=== PATIENT | female | born 1955 | race Caucasian/White ===

== ENCOUNTER → 2016-11-11 | Outpatient (CLI) | payer OTHER ==
[~2016-11-11] MED LIST: OMNIPAQUE 350 MG/ML, 100ML BOTTLE ONE
== END | disposition home or self-care (01) ==
LOC: CFH 08:44
PROVIDERS: ATTEND Surgery
DX: C50.912 Malignant neoplasm of unspecified site of left female breast (principal); M47.897 Other spondylosis, lumbosacral region; K76.89 Other specified diseases of liver
CPT/HCPCS: 71260; 74177; Q9967

== ENCOUNTER → 2016-11-11 | Outpatient (CLI) | payer OTHER | END | disposition home or self-care (01) | LOC: PETCFH 08:46 | PROVIDERS: ATTEND Surgery | DX: C50.912 Malignant neoplasm of unspecified site of left female breast (principal) | CPT/HCPCS: 78306; A9503 ==

== ENCOUNTER 2016-11-15 06:06 | Day surgery (SDC) | payer OTHER ==
[~2016-11-15] VITALS: Ht 165.1 cm; Wt 53.3 kg
[2016-11-15 06:36] VITALS: BP 123/76
[2016-11-15 07:52] LABS: HCG UR OBC PASS
[2016-11-15 07:59] LABS: BLOOD UREA NITROGEN 15 mg/dL (7-18)
[2016-11-15] MEDS ORDERED: BUPIVACAINE/PF-EPI 0.25% 1:200K ONE (08:20)
[2016-11-15] MEDS ORDERED: HEPARIN 1,000 UNITS/ML, 10ML ONE (08:20)
[2016-11-15] MEDS ORDERED: CEFAZOLIN 1,000 MG ONE (08:35)
[2016-11-15] MEDS ORDERED: PROPOFOL 10 MG/ML, 20ML ONE (08:35)
[2016-11-15] MEDS ORDERED: DEXAMETHASONE 4 MG/ML, 1ML ONE (08:35)
[2016-11-15] MEDS ORDERED: ONDANSETRON 2MG/ML, 2ML ONE (08:35)
[2016-11-15] MEDS ORDERED: PHENYLEPHRINE 10 MG/ML ONE (08:35)
[2016-11-15] MEDS ORDERED: METOCLOPRAMIDE 5 MG/ML, 2ML IV PRN (09:00)
[2016-11-15] MEDS ORDERED: ONDANSETRON 2MG/ML, 2ML IVPush PRN ×2 (09:00→11:30)
[2016-11-15] MEDS ORDERED: HYDROmorphone 1 MG/ML, 1ML IV PRN (09:00)
[2016-11-15] MEDS ORDERED: MIDAZOLAM 1 MG/ML, 2ML IV PRN (09:00)
[2016-11-15] MEDS ORDERED: PROMETHAZINE 25 MG/ML, 1ML IV PRN (09:00)
[2016-11-15] MEDS ORDERED: OXYcodone 5 MG/5 ML ORAL.SOL UDC PO PRN (09:00)
[2016-11-15] MEDS ORDERED: MEPERIDINE/PF 25MG/0.5ML IVPush PRN (09:00)
[2016-11-15] MEDS ORDERED: ACETAMINOPHEN 325 MG TABLET PO PRN (09:00)
[2016-11-15] MEDS ORDERED: FENTANYL PF 100 MCG/2ML IV PRN (09:00)
[2016-11-15 10:35] VITALS: BP 97/49
[2016-11-15] MEDS ORDERED: MORPHINE SULFATE 4 MG/ML, 1ML IVPush PRN (11:30)
[2016-11-15] MEDS ORDERED: HYDR-3240 PO (14:23)
[2016-11-15] MEDS ORDERED: ONDA4TAB10 PO (14:23)
[2016-11-15 14:35] VITALS: BP 115/42
[2016-11-15] MEDS ORDERED: SODIUM CHLORIDE FLUSH 3ML SYRINGE IVF SCH (21:00)
== END 2016-11-15 15:03 | disposition home or self-care (01) ==
LOC: SDC 06:06 → 4NOR 06:06 → UNDOADMIN 06:06 → SDC 15:03 → UNDODISIN 15:03 → EDSTATUS 11-16 11:11
PROVIDERS: ATTEND Surgery
DX: C50.812 Malignant neoplasm of overlapping sites of left female breast (principal); Z72.89 Other problems related to lifestyle; Z80.42 Family history of malignant neoplasm of prostate
CPT/HCPCS: 36415; 36561; 71010; 77001; 80048; 81025; 85025; C1788; J0690; J1100; J1644; J2250; J2370; J2405; J2704; J3010

== ENCOUNTER → 2016-11-19 | Outpatient (CLI) | payer OTHER ==
[~2016-11-19] MED LIST changes: +GADOBUTROL 10 MMOL/10 ML VIAL ONE; +HYDR-3240 PO; -OMNIPAQUE 350 MG/ML, 100ML BOTTLE ONE; +ONDA4TAB10 PO
== END | disposition home or self-care (01) ==
LOC: CFH 11:40
PROVIDERS: ATTEND Internal Medicine Hematology & Oncology
DX: C50.812 Malignant neoplasm of overlapping sites of left female breast (principal); N60.01 Solitary cyst of right breast; R59.1 Generalized enlarged lymph nodes; M89.9 Disorder of bone, unspecified; K76.89 Other specified diseases of liver
CPT/HCPCS: A9585; C8908

== ENCOUNTER → 2016-11-20 | Outpatient (CLI) | payer OTHER ==
[~2016-11-20] MED LIST changes: -GADOBUTROL 10 MMOL/10 ML VIAL ONE
== END | disposition home or self-care (01) ==
LOC: CFH 14:35
PROVIDERS: ATTEND Internal Medicine Hematology & Oncology
DX: I07.1 Rheumatic tricuspid insufficiency (principal); I37.1 Nonrheumatic pulmonary valve insufficiency; C50.812 Malignant neoplasm of overlapping sites of left female breast
CPT/HCPCS: 93306

== ENCOUNTER 2017-05-06 11:40 | Day surgery (SDC) | payer OTHER ==
[2017-04-29 12:24] VITALS: BP 118/74
[~2017-05-06] VITALS: Ht 165.1 cm; Wt 52.1 kg
[~2017-05-06 11:40] MED LIST changes: +DIPH1TAB PO; +PERT420V INJ; +TRAS440V INJ
[2017-05-06] MEDS ORDERED: LACTATED RINGERS 1,000 ML IV SCH (12:08)
[2017-05-06 12:11] VITALS: BP 118/74
[2017-05-06] MEDS ORDERED: MIDAZOLAM 1 MG/ML, 2ML ONE (13:13)
[2017-05-06] MEDS ORDERED: FENTANYL PF 100 MCG/2ML ONE ×3 (13:13→15:55)
[2017-05-06] MEDS ORDERED: PROPOFOL 10 MG/ML, 20ML ONE (13:13)
[2017-05-06] MEDS ORDERED: CEFAZOLIN 1,000 MG ONE ×2 (13:13)
[2017-05-06] MEDS ORDERED: BUPIVACAINE/PF 0.5% ONE (13:49)
[2017-05-06] MEDS ORDERED: EPINEPHRINE 1 MG/ML, 1ML ONE (13:50)
[2017-05-06] MEDS ORDERED: OXYcodone 5 MG/5 ML ORAL.SOL UDC PO PRN (14:00)
[2017-05-06] MEDS ORDERED: ONDANSETRON 2MG/ML, 2ML IVPush PRN ×2 (14:00→19:00)
[2017-05-06] MEDS ORDERED: LABETALOL 5MG/ML, 20ML IV PRN (14:00)
[2017-05-06] MEDS ORDERED: MEPERIDINE/PF 25MG/0.5ML IVPush PRN (14:00)
[2017-05-06] MEDS ORDERED: hydrALAzine 20 MG/ML, 1ML IV PRN (14:00)
[2017-05-06] MEDS ORDERED: ACETAMINOPHEN 325 MG TABLET PO PRN (14:00)
[2017-05-06] MEDS ORDERED: PROMETHAZINE 25 MG/ML, 1ML IV PRN (14:00)
[2017-05-06] MEDS ORDERED: NEOSTIGMINE 1 MG/ML, 10ML ONE (14:20)
[2017-05-06] MEDS ORDERED: ONDANSETRON 2MG/ML, 2ML ONE ×2 (14:20→19:07)
[2017-05-06] MEDS ORDERED: GLYCOPYRROLATE 0.4 MG/2 ML, 2ML ONE (14:20)
[2017-05-06] MEDS ORDERED: ROCURONIUM 10MG/ML,5ML ONE (14:20)
[2017-05-06] MEDS ORDERED: DEXAMETHASONE 4 MG/ML, 1ML ONE ×2 (14:20)
[2017-05-06] MEDS ORDERED: ACETAMINOPHEN 650 MG/20.3 ML UDC ONE (15:55)
[2017-05-06] MEDS ORDERED: OXYcodone 5 MG/5 ML ORAL.SOL UDC ONE (15:55)
[2017-05-06] MEDS ORDERED: HYDROmorphone 1 MG/ML, 1ML ONE (15:55)
[2017-05-06] MEDS: FENTANYL PF 100 MCG/2ML IV PRN ×2 (16:00→16:17)
[2017-05-06] MEDS: HYDROmorphone 1 MG/ML, 1ML IV PRN ×2 (16:08→16:22)
[2017-05-06] MEDS ORDERED: PROMETHAZINE 25 MG/ML, 1ML IM ONE (17:30)
== END 2017-05-06 19:27 ==
LOC: OUT 11:40
PROVIDERS: ATTEND Surgery
DX: C50.912 Malignant neoplasm of unspecified site of left female breast (principal); Z98.890 Other specified postprocedural states; Z72.89 Other problems related to lifestyle; Z88.8 Allergy status to other drugs, medicaments and biological substances
CPT/HCPCS: 19303; 38525; 88307; C1729; J0171; J0690; J1100; J1170; J2250; J2405; J2704; J2710; J3010; J3490; J7120

== ENCOUNTER → 2017-06-04 | Outpatient (CLI) | payer OTHER | END | disposition home or self-care (01) | LOC: ROC 08:36 | PROVIDERS: ATTEND Radiology Radiation Oncology | DX: C50.912 Malignant neoplasm of unspecified site of left female breast (principal); Z90.12 Acquired absence of left breast and nipple | CPT/HCPCS: 99214; G0463 ==

== ENCOUNTER → 2017-09-01 | Outpatient (CLI) | payer OTHER | END | disposition home or self-care (01) | LOC: CFH 15:35 | PROVIDERS: ATTEND Internal Medicine Hematology & Oncology | DX: C50.912 Malignant neoplasm of unspecified site of left female breast (principal); I35.1 Nonrheumatic aortic (valve) insufficiency; I34.0 Nonrheumatic mitral (valve) insufficiency | CPT/HCPCS: 93306 ==

== ENCOUNTER → 2017-11-11 | Outpatient (CLI) | payer OTHER | LOC: CFH 09:53 | PROVIDERS: ATTEND Internal Medicine Hematology & Oncology | DX: Z12.31 Encounter for screening mammogram for malignant neoplasm of breast (principal); Z90.12 Acquired absence of left breast and nipple; Z85.3 Personal history of malignant neoplasm of breast; Z92.3 Personal history of irradiation | CPT/HCPCS: 77067 ==

== ENCOUNTER → 2017-12-18 | Outpatient (CLI) | payer OTHER ==
[~2017-12-18] MED LIST changes: +ACET325T14 PO; +DEXA4TAB66 PO; +LEVE500T53 PO
== END ==
LOC: ROC 17:30
PROVIDERS: ATTEND Radiology Radiation Oncology
DX: Z02.9 Encounter for administrative examinations, unspecified (principal)

== ENCOUNTER → 2017-12-21 | Outpatient (CLI) | payer OTHER ==
[~2017-12-21] MED LIST changes: +GADOBUTROL 7.5 MMOL/7.5 ML PFS ONE
== END | disposition home or self-care (01) ==
LOC: CFH 10:56
PROVIDERS: ATTEND Radiology Radiation Oncology
DX: G93.89 Other specified disorders of brain (principal); C79.31 Secondary malignant neoplasm of brain; C50.919 Malignant neoplasm of unspecified site of unspecified female breast
CPT/HCPCS: 70553; A9585

== ENCOUNTER → 2017-12-29 | Outpatient (CLI) | payer OTHER ==
[~2017-12-29] MED LIST changes: -GADOBUTROL 7.5 MMOL/7.5 ML PFS ONE
== END | disposition home or self-care (01) ==
LOC: PETCFH 07:51
PROVIDERS: ATTEND Internal Medicine Hematology & Oncology
DX: K76.89 Other specified diseases of liver (principal); N20.0 Calculus of kidney; C50.812 Malignant neoplasm of overlapping sites of left female breast; Z90.12 Acquired absence of left breast and nipple
CPT/HCPCS: 78815; A9552

== ENCOUNTER → 2017-12-31 | Outpatient (CLI) | payer OTHER | END | disposition home or self-care (01) | LOC: RAD 15:45 | PROVIDERS: ATTEND Radiology Radiation Oncology | DX: M79.601 Pain in right arm (principal); M79.89 Other specified soft tissue disorders; C79.31 Secondary malignant neoplasm of brain; C50.919 Malignant neoplasm of unspecified site of unspecified female breast ==

== ENCOUNTER → 2018-01-25 | Outpatient (CLI) | payer OTHER ==
[~2018-01-25] MED LIST changes: +OMNIPAQUE 350 MG/ML, 100ML BOTTLE ONE
== END | disposition home or self-care (01) ==
LOC: CFH 09:34
PROVIDERS: ATTEND Internal Medicine Hematology & Oncology
DX: R91.1 Solitary pulmonary nodule (principal); C79.31 Secondary malignant neoplasm of brain; K76.89 Other specified diseases of liver; M47.897 Other spondylosis, lumbosacral region; Z90.12 Acquired absence of left breast and nipple
CPT/HCPCS: 71260; 74177; Q9967

== ENCOUNTER → 2018-01-31 | Outpatient (CLI) | payer OTHER ==
[~2018-01-31] MED LIST changes: +GADOBUTROL 7.5 MMOL/7.5 ML PFS ONE; -OMNIPAQUE 350 MG/ML, 100ML BOTTLE ONE
== END ==
LOC: CFH 10:03
PROVIDERS: ATTEND Radiology Radiation Oncology
DX: C79.31 Secondary malignant neoplasm of brain (principal)
CPT/HCPCS: 70553; A9585

== ENCOUNTER → 2018-02-21 | Outpatient (CLI) | payer OTHER ==
[~2018-02-21] MED LIST changes: -GADOBUTROL 7.5 MMOL/7.5 ML PFS ONE
== END | disposition home or self-care (01) ==
LOC: CFH 12:51
PROVIDERS: ATTEND Internal Medicine Hematology & Oncology
DX: C50.812 Malignant neoplasm of overlapping sites of left female breast (principal); C79.31 Secondary malignant neoplasm of brain
CPT/HCPCS: 93306

== ENCOUNTER → 2018-05-30 | Outpatient (CLI) | payer OTHER ==
[~2018-05-30] MED LIST changes: +GADOBUTROL 7.5 MMOL/7.5 ML PFS ONE; +OMNIPAQUE 350 MG/ML, 100ML BOTTLE ONE
== END | disposition home or self-care (01) ==
LOC: CFH 09:31
PROVIDERS: ATTEND Internal Medicine Hematology & Oncology
DX: C50.812 Malignant neoplasm of overlapping sites of left female breast (principal)
CPT/HCPCS: 70553; 71260; 74177; 82565; A9585; Q9967

== ENCOUNTER → 2018-09-29 | Outpatient (CLI) | payer OTHER ==
[~2018-09-29] MED LIST changes: -GADOBUTROL 7.5 MMOL/7.5 ML PFS ONE; -OMNIPAQUE 350 MG/ML, 100ML BOTTLE ONE
== END | disposition home or self-care (01) ==
LOC: CVU 08:27
PROVIDERS: ATTEND Internal Medicine Hematology & Oncology
DX: I08.2 Rheumatic disorders of both aortic and tricuspid valves (principal)
CPT/HCPCS: 0399T; 93306

== ENCOUNTER → 2018-11-15 | Outpatient (CLI) | payer OTHER ==
[~2018-11-15] MED LIST changes: +GADOBUTROL 7.5 MMOL/7.5 ML PFS ONE; +OMNIPAQUE 350 MG/ML, 100ML BOTTLE ONE
== END | disposition home or self-care (01) ==
LOC: CFH 12:56
PROVIDERS: ATTEND Internal Medicine Hematology & Oncology
DX: C50.812 Malignant neoplasm of overlapping sites of left female breast (principal); C79.31 Secondary malignant neoplasm of brain; R91.8 Other nonspecific abnormal finding of lung field; K76.89 Other specified diseases of liver; K76.0 Fatty (change of) liver, not elsewhere classified; Z90.12 Acquired absence of left breast and nipple
CPT/HCPCS: 70553; 71260; 74177; A9585; Q9967

== ENCOUNTER 2018-11-21 07:27 | Outpatient (CLI) | payer OTHER ==
[~2018-11-21 07:27] MED LIST changes: -GADOBUTROL 7.5 MMOL/7.5 ML PFS ONE; -OMNIPAQUE 350 MG/ML, 100ML BOTTLE ONE
== END 2018-11-21 23:59 | disposition home or self-care (01) ==
LOC: ROC 07:27
PROVIDERS: ATTEND Radiology Radiation Oncology
DX: C79.31 Secondary malignant neoplasm of brain (principal)
CPT/HCPCS: 99212; G0463

== ENCOUNTER → 2018-12-26 | Outpatient (CLI) | payer OTHER ==
[~2018-12-26] MED LIST changes: +GADOBUTROL 7.5 MMOL/7.5 ML PFS ONE
== END | disposition home or self-care (01) ==
LOC: CFH 10:23
PROVIDERS: ATTEND Radiology Radiation Oncology
DX: C79.31 Secondary malignant neoplasm of brain (principal); I10 Essential (primary) hypertension; Z85.3 Personal history of malignant neoplasm of breast; Z98.890 Other specified postprocedural states
CPT/HCPCS: 70553; A9585

== ENCOUNTER 2018-12-27 07:41 | Outpatient (CLI) | payer OTHER ==
[~2018-12-27 07:41] MED LIST changes: -GADOBUTROL 7.5 MMOL/7.5 ML PFS ONE
== END 2018-12-27 23:59 | disposition home or self-care (01) ==
LOC: ROC 07:41
PROVIDERS: ATTEND Radiology Radiation Oncology
DX: C79.31 Secondary malignant neoplasm of brain (principal)
CPT/HCPCS: 99213; G0463

== ENCOUNTER 2019-05-18 08:27 | Outpatient (CLI) | payer OTHER | END 2019-05-18 23:59 | disposition home or self-care (01) | LOC: ROC 08:27 | PROVIDERS: ATTEND Radiology Radiation Oncology | DX: C71.9 Malignant neoplasm of brain, unspecified (principal) | CPT/HCPCS: 99213; G0463 ==

== ENCOUNTER → 2019-07-17 | Outpatient (CLI) | payer OTHER ==
[~2019-07-17] MED LIST changes: +GADOTERATE 7.5 MMOL/15 ML SYR ONE; +OMNIPAQUE 350 MG/ML, 100ML BOTTLE ONE
== END | disposition home or self-care (01) ==
LOC: CFH 11:31
PROVIDERS: ATTEND Internal Medicine Hematology & Oncology
DX: C50.812 Malignant neoplasm of overlapping sites of left female breast (principal)
CPT/HCPCS: 70553; 71260; 74177; A9575; Q9967

== ENCOUNTER → 2019-07-24 | Outpatient (CLI) | payer OTHER ==
[~2019-07-24] MED LIST changes: -GADOTERATE 7.5 MMOL/15 ML SYR ONE; -OMNIPAQUE 350 MG/ML, 100ML BOTTLE ONE
== END | disposition home or self-care (01) ==
LOC: ROC 08:53
PROVIDERS: ATTEND Radiology Radiation Oncology
DX: C79.31 Secondary malignant neoplasm of brain (principal); C50.912 Malignant neoplasm of unspecified site of left female breast
CPT/HCPCS: 99213; G0463

== ENCOUNTER → 2019-10-02 | Outpatient (CLI) | payer OTHER ==
[~2019-10-02] MED LIST changes: +GADOTERATE 7.5 MMOL/15 ML SYR ONE
== END | disposition home or self-care (01) ==
LOC: RAD 10:27
PROVIDERS: ATTEND Internal Medicine Hematology & Oncology
DX: G93.89 Other specified disorders of brain (principal); C50.812 Malignant neoplasm of overlapping sites of left female breast
CPT/HCPCS: 70553; 78306; A9503; A9575

== ENCOUNTER 2019-10-13 08:13 | Outpatient (CLI) | payer OTHER ==
[~2019-10-13 08:13] MED LIST changes: -GADOTERATE 7.5 MMOL/15 ML SYR ONE
== END 2019-10-13 23:59 | disposition home or self-care (01) ==
LOC: ROC 08:13
PROVIDERS: ATTEND Radiology Radiation Oncology
DX: C79.31 Secondary malignant neoplasm of brain (principal); C50.412 Malignant neoplasm of upper-outer quadrant of left female breast
CPT/HCPCS: 99213; G0463

== ENCOUNTER → 2019-10-24 | Outpatient (CLI) | payer OTHER | END | disposition home or self-care (01) | LOC: RAD 10:11 | PROVIDERS: ATTEND Neurological Surgery | DX: C79.31 Secondary malignant neoplasm of brain (principal); C80.1 Malignant (primary) neoplasm, unspecified | CPT/HCPCS: 76390 ==

== ENCOUNTER 2019-12-15 08:30 | Outpatient (CLI) | payer OTHER | END 2019-12-15 23:59 | disposition home or self-care (01) | LOC: ROC 08:30 | PROVIDERS: ATTEND Radiology Radiation Oncology | DX: Z08 Encounter for follow-up examination after completed treatment for malignant neoplasm (principal); Z85.841 Personal history of malignant neoplasm of brain | CPT/HCPCS: 99213; G0463 ==

== ENCOUNTER → 2020-01-09 | Outpatient (CLI) | payer OTHER ==
[~2020-01-09] MED LIST changes: +GADOTERATE 7.5 MMOL/15 ML SYR ONE
== END | disposition home or self-care (01) ==
LOC: RAD 09:27
PROVIDERS: ATTEND Neurological Surgery
DX: C79.31 Secondary malignant neoplasm of brain (principal); C50.112 Malignant neoplasm of central portion of left female breast; I67.89 Other cerebrovascular disease
CPT/HCPCS: 76390; A9575

== ENCOUNTER 2020-01-27 08:54 | Emergency (ER) | payer OTHER ==
[~2020-01-27] VITALS: Ht 162.6 cm; Wt 55.4 kg
[~2020-01-27 08:54] MED LIST changes: -GADOTERATE 7.5 MMOL/15 ML SYR ONE
[2020-01-27 10:08] VITALS: BP 113/54
== END 2020-01-27 11:18 | disposition home or self-care (01) ==
LOC: ED 11:00
DX: M79.662 Pain in left lower leg (principal); M79.652 Pain in left thigh; Z85.3 Personal history of malignant neoplasm of breast
CPT/HCPCS: 99284

== ENCOUNTER → 2020-04-10 | Outpatient (CLI) | payer OTHER ==
[~2020-04-10] MED LIST changes: +GADOTERATE 7.5 MMOL/15 ML SYR ONE; +OMNIPAQUE 350 MG/ML, 100ML BOTTLE ONE
== END | disposition home or self-care (01) ==
LOC: RAD 12:42
PROVIDERS: ATTEND Internal Medicine Hematology & Oncology
DX: C50.812 Malignant neoplasm of overlapping sites of left female breast (principal); J84.10 Pulmonary fibrosis, unspecified; N20.0 Calculus of kidney
CPT/HCPCS: 70553; 71260; 74177; A9575; Q9967

== ENCOUNTER → 2020-07-15 | Outpatient (CLI) | payer OTHER ==
[~2020-07-15] MED LIST changes: -GADOTERATE 7.5 MMOL/15 ML SYR ONE; +GADOTERATE 7.5 MMOL/15 ML VIAL ONE; -OMNIPAQUE 350 MG/ML, 100ML BOTTLE ONE
== END | disposition home or self-care (01) ==
LOC: RAD 07:18 → EDSTATUS 08:00
PROVIDERS: ATTEND Internal Medicine Hematology & Oncology
DX: C50.812 Malignant neoplasm of overlapping sites of left female breast (principal); R94.02 Abnormal brain scan
CPT/HCPCS: 70553; A9575

== ENCOUNTER → 2020-07-24 | Outpatient (CLI) | payer OTHER ==
[~2020-07-24] MED LIST changes: -GADOTERATE 7.5 MMOL/15 ML VIAL ONE; +OMNIPAQUE 350 MG/ML, 100ML BOTTLE ONE
== END | disposition home or self-care (01) ==
LOC: RAD 09:00
PROVIDERS: ATTEND Internal Medicine Hematology & Oncology
DX: C50.812 Malignant neoplasm of overlapping sites of left female breast (principal)
CPT/HCPCS: 71260; 74177; Q9967

== ENCOUNTER 2020-09-12 09:14 | Outpatient (CLI) | payer OTHER ==
[~2020-09-12 09:14] MED LIST changes: +HYDR-1067 PO; -HYDR-3240 PO; -OMNIPAQUE 350 MG/ML, 100ML BOTTLE ONE
== END 2020-09-12 23:59 | disposition home or self-care (01) ==
LOC: RAD 09:14
PROVIDERS: ATTEND Internal Medicine Hematology & Oncology
DX: Z02.9 Encounter for administrative examinations, unspecified (principal)

== ENCOUNTER 2020-10-16 09:42 | Outpatient (CLI) | payer OTHER ==
[~2020-10-16 09:42] MED LIST changes: -HYDR-1067 PO; +HYDR-2214 PO
[2020-10-16] MEDS ORDERED: GADOTERATE 7.5 MMOL/15ML SYR ONE (11:04)
== END 2020-10-16 23:59 | disposition home or self-care (01) ==
LOC: CFH 09:42
PROVIDERS: ATTEND Internal Medicine Hematology & Oncology
DX: C50.812 Malignant neoplasm of overlapping sites of left female breast (principal); G93.89 Other specified disorders of brain
CPT/HCPCS: 70553; A9575

== ENCOUNTER → 2020-10-28 | Outpatient (CLI) | payer OTHER ==
[~2020-10-28] MED LIST changes: +HYDR-1067 PO; -HYDR-2214 PO
== END | disposition home or self-care (01) ==
LOC: ROC 07:45
PROVIDERS: ATTEND Radiology Radiation Oncology
DX: Z08 Encounter for follow-up examination after completed treatment for malignant neoplasm (principal); Z85.841 Personal history of malignant neoplasm of brain
CPT/HCPCS: 99212; G0463

== ENCOUNTER → 2020-11-05 | Outpatient (CLI) | payer OTHER ==
[~2020-11-05] MED LIST changes: +OMNIPAQUE 350 MG/ML, 100ML BOTTLE ONE
== END | disposition home or self-care (01) ==
LOC: CFH 11:37
PROVIDERS: ATTEND Internal Medicine Hematology & Oncology
DX: C50.812 Malignant neoplasm of overlapping sites of left female breast (principal); J84.10 Pulmonary fibrosis, unspecified; K76.89 Other specified diseases of liver
CPT/HCPCS: 71260; 74177; Q9967

== ENCOUNTER → 2020-11-12 | Outpatient (CLI) | payer OTHER ==
[~2020-11-12] MED LIST changes: +HEPARIN 1,000 UNITS/ML, 10ML ONE; -HYDR-1067 PO; +HYDR-2214 PO; -OMNIPAQUE 350 MG/ML, 100ML BOTTLE ONE
== END | disposition home or self-care (01) ==
LOC: RAD 09:26
PROVIDERS: ATTEND Internal Medicine Hematology & Oncology
DX: C50.812 Malignant neoplasm of overlapping sites of left female breast (principal)
CPT/HCPCS: 78306; A9503; J1644

== ENCOUNTER 2020-11-29 07:06 | Outpatient (CLI) | payer OTHER ==
[~2020-11-29 07:06] MED LIST changes: -HEPARIN 1,000 UNITS/ML, 10ML ONE
== END 2020-11-29 23:59 | disposition home or self-care (01) ==
LOC: ROC 07:06
PROVIDERS: ATTEND Radiology Radiation Oncology
DX: Z08 Encounter for follow-up examination after completed treatment for malignant neoplasm (principal); Z85.841 Personal history of malignant neoplasm of brain; Z85.3 Personal history of malignant neoplasm of breast
CPT/HCPCS: 99212; G0463

== ENCOUNTER → 2020-12-31 | Outpatient (CLI) | payer OTHER ==
[~2020-12-31] MED LIST changes: +GADOTERATE 5 MMOL/10ML SYR ONE
== END | disposition home or self-care (01) ==
LOC: RAD 14:56
PROVIDERS: ATTEND Internal Medicine Hematology & Oncology
DX: C50.812 Malignant neoplasm of overlapping sites of left female breast (principal); G93.89 Other specified disorders of brain
CPT/HCPCS: 70553; A9575

== ENCOUNTER 2021-03-01 08:25 | Emergency (ER) | payer OTHER ==
[~2021-03-01] VITALS: Ht 162.6 cm; Wt 54.0 kg
[~2021-03-01 08:25] MED LIST changes: -GADOTERATE 5 MMOL/10ML SYR ONE
--- NOTE | 2021-03-01 08:39 | NUR ---
PT AMBULATORY TO ROOM FROM TRIAGE, CHANGED INTO GOWN, MONITORS IN PLACE. PT C/O L-SIDED FACIAL DROOP FOR X2 DAYS, DENIES FONSECA. DENIES WEAKNESS IN EXTREMITIES, BUT UNSTEADY GAIT.
--- NOTE | 2021-03-01 08:40 | NUR ---
PA AT BS
--- NOTE | 2021-03-01 09:03 | NUR ---
PT UNABLE TO VOID AT THIS TIME
--- NOTE | 2021-03-01 09:05 | NUR ---
ERP AT BS
[2021-03-01 09:08] LABS: BASOPHILS % (AUTO) 1 % (0-1); EOSINOPHILS % (AUTO) 5 % (1-7); LYMPHOCYTES % (AUTO) 19 % (22-44); MEAN CORPUSCULAR HEMOGLOBIN 37.9 pg (27.0-34.8); MEAN CORPUSCULAR HGB CONC 34.5 g/dL (32.4-35.8); MEAN PLATELET VOLUME 8.4 fL (7.4-10.4); MONOCYTES % (AUTO) 9 % (2-9); NEUTROPHILS % (AUTO) 66 % (42-75); PLATELET COUNT 164 x10^3/uL (130-400); RED BLOOD COUNT 3.97 x10^6/uL (3.82-5.3); RED CELL DISTRIBUTION WIDTH 17.3 % (9.6-15.2)
[2021-03-01] MEDS ORDERED: LAPA250T PO (09:13)
[2021-03-01] MEDS ORDERED: CAPE150T PO (09:13)
[2021-03-01 09:18] LABS: ALANINE AMINOTRANSFERASE 22 U/L (12-78); ALBUMIN 3.6 g/dL (3.4-5.0); ANION GAP 6 mmol/L (5-15); CALCIUM 9.2 mg/dL (8.5-10.1); CHLORIDE 110 mmol/L (98-107); CREATININE 0.73 mg/dL (0.55-1.02)
[2021-03-01 09:21] LABS: ALKALINE PHOSPHATASE 42 U/L (45-117); BILIRUBIN,TOTAL 0.7 mg/dL (0.2-1.0); TOTAL PROTEIN 6.5 g/dL (6.4-8.2)
--- NOTE | 2021-03-01 09:32 | NUR ---
PT SWABBED FOR COVID, TOLERATED WELL
--- NOTE | 2021-03-01 09:51 | NUR ---
PT AMBULATORY TO BR WITH UPRIGHT STEADY GAIT FOR URINE SAMPLE. BACK TO ROOM W/O INCIDENCE. PT CONNECTED TO MONITORS. CALL LIGHT WITHIN REACH. BED IN LOWEST POSITION, BED RAILS UP X2. AT BS
[2021-03-01 10:22] VITALS: BP 118/76
--- NOTE | 2021-03-01 10:28 | NUR ---
Patient is resting comfortably in bed. Bed in lowest, rails engaged, call light on lap. Vital Signs within normal limits. at bs. [facility].
[2021-03-01 10:45] LABS: MICROSCOPIC NOT IND
--- NOTE | 2021-03-01 11:11 | NUR ---
Patient given discharge instructions and RX, they have confirmed that they understand the instructions. Patient ambulatory with steady gait.
== END 2021-03-01 11:12 | disposition home or self-care (01) ==
LOC: ED 09:22
DX: G51.0 Bell's palsy (principal); Z20.822 Contact with and (suspected) exposure to COVID-19; R94.31 Abnormal electrocardiogram [ECG] [EKG]; Z85.3 Personal history of malignant neoplasm of breast
CPT/HCPCS: 36415; 80053; 81003; 85025; 93005; 99284; U0003; U0005

== ENCOUNTER 2021-03-14 15:05 | Inpatient (IN) | payer OTHER ==
[~2021-03-14] VITALS: Ht 162.6 cm; Wt 54.5 kg
[~2021-03-14 15:05] MED LIST changes: +CAPE150T PO; +LAPA250T PO
[2021-03-14 15:47] LABS: BASOPHILS % (AUTO) 1 % (0-1); EOSINOPHILS % (AUTO) 2 % (1-7); LYMPHOCYTES % (AUTO) 18 % (22-44); MEAN CORPUSCULAR HEMOGLOBIN 37.7 pg (27.0-34.8); MEAN CORPUSCULAR HGB CONC 34.8 g/dL (32.4-35.8); MEAN PLATELET VOLUME 8.4 fL (7.4-10.4); MONOCYTES % (AUTO) 8 % (2-9); NEUTROPHILS % (AUTO) 72 % (42-75); PLATELET COUNT 148 x10^3/uL (130-400); RED BLOOD COUNT 4.52 x10^6/uL (3.82-5.3)
[2021-03-14 15:58] LABS: ALANINE AMINOTRANSFERASE 18 U/L (12-78); ALBUMIN 3.9 g/dL (3.4-5.0); ANION GAP 7 mmol/L (5-15); CALCIUM 9.7 mg/dL (8.5-10.1); CHLORIDE 104 mmol/L (98-107); CREATININE 0.73 mg/dL (0.55-1.02)
[2021-03-14 16:01] LABS: ALKALINE PHOSPHATASE 42 U/L (45-117); BILIRUBIN,TOTAL 1.5 mg/dL (0.2-1.0); TOTAL PROTEIN 7.1 g/dL (6.4-8.2)
--- NOTE | 2021-03-14 17:19 | NUR ---
Pt to room from lobby
[2021-03-14 17:29] LABS: OVALOCYTES 1+
[2021-03-14 17:30] LABS: <PLATELET ESTIMATE> ADEQUATE; <PLT MORPHOLOGY> NORMAL PLT MORPH
--- NOTE | 2021-03-14 18:55 | NUR ---
pt requesting liquid tylenol and eye drops
[2021-03-14] MEDS ORDERED: ARTIFICIAL TEARS 15 DROP/ML BOTTLE EACHEYE PRN (19:30)
[2021-03-14] MEDS ORDERED: ACETAMINOPHEN 650 MG/20.3 ML UDC PO ONE (19:30)
[2021-03-14] MEDS ORDERED: ACETAMINOPHEN 650 MG/20.3 ML UDC ONE (19:42)
[2021-03-14] MEDS ORDERED: ACETAMINOPHEN 325 MG TABLET PO PRN (20:00)
[2021-03-14] MEDS ORDERED: hydrALAzine 20 MG/ML, 1ML IVPush PRN (20:00)
[2021-03-14] MEDS ORDERED: LABETALOL 5MG/ML, 20ML IVPush PRN (20:00)
[2021-03-14] MEDS ORDERED: BISACODYL 10 MG SUPP PR PRN (20:00)
[2021-03-14] MEDS ORDERED: MELATONIN 5 MG TABLET PO PRN (20:00)
[2021-03-14] MEDS ORDERED: GABAPENTIN 300 MG CAPSULE PO PRN (20:00)
[2021-03-14] MEDS ORDERED: DOCUSATE 100 MG CAPSULE PO PRN (20:00)
[2021-03-14] MEDS ORDERED: ONDANSETRON 2MG/ML, 2ML IVPush PRN (20:00)
[2021-03-14] MEDS ORDERED: KETOROLAC 30 MG/1 ML IV PRN (20:00)
[2021-03-14] MEDS ORDERED: SODIUM CHLORIDE 0.9% 1,000 ML IV SCH (20:00)
[2021-03-14] MEDS ORDERED: ARTIFICIAL TEARS 15 DROP/ML BOTTLE OP PRN (20:00)
[2021-03-14] MEDS ORDERED: ONDANSETRON ODT 4 MG PO PRN (20:00)
[2021-03-14 22:14] VITALS: BP 116/77
[2021-03-14] MEDS ORDERED: ASPI-963 PO (22:45)
[2021-03-15 00:57] VITALS: BP 118/76
[2021-03-15 04:47] LABS: BASOPHILS % (AUTO) 1 % (0-1); EOSINOPHILS % (AUTO) 3 % (1-7); LYMPHOCYTES % (AUTO) 27 % (22-44); MEAN CORPUSCULAR HEMOGLOBIN 37.8 pg (27.0-34.8); MEAN CORPUSCULAR HGB CONC 35.1 g/dL (32.4-35.8); MEAN PLATELET VOLUME 8.7 fL (7.4-10.4); MONOCYTES % (AUTO) 9 % (2-9); NEUTROPHILS % (AUTO) 61 % (42-75); PLATELET COUNT 147 x10^3/uL (130-400); RED BLOOD COUNT 4.18 x10^6/uL (3.82-5.3)
[2021-03-15 04:51] LABS: MICROSCOPIC AUTO
[2021-03-15 05:01] LABS: ANION GAP 6 mmol/L (5-15); CALCIUM 9.4 mg/dL (8.5-10.1); CHLORIDE 108 mmol/L (98-107); CREATININE 0.52 mg/dL (0.55-1.02)
[2021-03-15 07:02] VITALS: BP 112/75
[2021-03-15] MEDS ORDERED: CAPECITABINE 150 MG PO SCH (09:00)
[2021-03-15] MEDS: HYDROcodone/APAP 5/325 TABLET PO PRN ×2 (11:35→23:02)
[2021-03-15] MEDS: LEVETIRACETAM 500 MG in SODIUM CHLORIDE 0.9% 100 ML IV SCH ×2 (11:35→21:31)
[2021-03-15 12:49] VITALS: BP 123/81
[2021-03-15] MEDS ORDERED: LIDOCAINE 1%, 10ML ONE (12:56)
[2021-03-15] MEDS: DEXAMETHASONE 4 MG/ML, 1ML IVPush SCH ×2 (14:29→21:31)
[2021-03-15 15:07] LABS: GLUCOSE, CSF 5 mg/dL (40-80); TOTAL PROTEIN,CSF 296 mg/dL (15-45)
[2021-03-15 18:32] VITALS: BP 119/77
[2021-03-15] MEDS: CAPECITABINE 500 MG TABLET PO SCH (21:32)
[2021-03-16 02:34] VITALS: BP 113/74
[2021-03-16] MEDS: DEXAMETHASONE 4 MG/ML, 1ML IVPush SCH ×4 (02:36→20:24)
[2021-03-16] MEDS: LAPATINIB DITOSYLATE PO SCH (05:44)
[2021-03-16 06:09] LABS: BASOPHILS % (AUTO) 0 % (0-1); EOSINOPHILS % (AUTO) 0 % (1-7); LYMPHOCYTES % (AUTO) 11 % (22-44); MEAN CORPUSCULAR HEMOGLOBIN 37.4 pg (27.0-34.8); MEAN CORPUSCULAR HGB CONC 35.1 g/dL (32.4-35.8); MEAN PLATELET VOLUME 8.4 fL (7.4-10.4); MONOCYTES % (AUTO) 2 % (2-9); NEUTROPHILS % (AUTO) 87 % (42-75); PLATELET COUNT 146 x10^3/uL (130-400); RED BLOOD COUNT 4.11 x10^6/uL (3.82-5.3); RED CELL DISTRIBUTION WIDTH 16.7 % (9.6-15.2)
[2021-03-16 06:16] LABS: CHLORIDE 107 mmol/L (98-107)
[2021-03-16 06:51] LABS: ALANINE AMINOTRANSFERASE 17 U/L (12-78); ALBUMIN 3.3 g/dL (3.4-5.0); ALKALINE PHOSPHATASE 38 U/L (45-117); ANION GAP 8 mmol/L (5-15); BILIRUBIN,TOTAL 1.1 mg/dL (0.2-1.0); CALCIUM 9.3 mg/dL (8.5-10.1); CREATININE 0.41 mg/dL (0.55-1.02); TOTAL PROTEIN 6.6 g/dL (6.4-8.2)
[2021-03-16 06:55] VITALS: BP 123/78
[2021-03-16] MEDS: HYDROcodone/APAP 5/325 TABLET PO PRN ×2 (08:00→23:18)
[2021-03-16] MEDS: CAPECITABINE 500 MG TABLET PO SCH ×2 (08:09→20:37)
[2021-03-16] MEDS ORDERED: GADOTERATE 5 MMOL/10ML SYR ONE (11:12)
[2021-03-16] MEDS: LEVETIRACETAM 500 MG in SODIUM CHLORIDE 0.9% 100 ML IV SCH ×2 (11:28→23:15)
[2021-03-16] MEDS ORDERED: ARTIFICIAL TEARS 15 DROP/ML BOTTLE EACHEYE PRN (12:00)
[2021-03-16 13:08] VITALS: BP 113/73
[2021-03-16 19:20] VITALS: BP 108/69
[2021-03-17 01:29] VITALS: BP 102/61
[2021-03-17 02:42] LABS: BASOPHILS % (AUTO) 0 % (0-1); EOSINOPHILS % (AUTO) 0 % (1-7); LYMPHOCYTES % (AUTO) 4 % (22-44); MEAN CORPUSCULAR HGB CONC 34.5 g/dL (32.4-35.8); MEAN PLATELET VOLUME 8.6 fL (7.4-10.4); MONOCYTES % (AUTO) 3 % (2-9); NEUTROPHILS % (AUTO) 93 % (42-75); PLATELET COUNT 146 x10^3/uL (130-400); RED BLOOD COUNT 3.85 x10^6/uL (3.82-5.3); RED CELL DISTRIBUTION WIDTH 16.8 % (9.6-15.2)
[2021-03-17] MEDS: DEXAMETHASONE 4 MG/ML, 1ML IVPush SCH ×4 (02:53→20:51)
[2021-03-17 02:54] LABS: ANION GAP 8 mmol/L (5-15); CALCIUM 9.1 mg/dL (8.5-10.1); CHLORIDE 106 mmol/L (98-107); CREATININE 0.53 mg/dL (0.55-1.02)
[2021-03-17 02:59] LABS: TROPONIN I < 0.015 ng/mL (0.000-0.045)
[2021-03-17 04:43] VITALS: BP 108/67
[2021-03-17] MEDS: LAPATINIB DITOSYLATE PO SCH (06:00)
[2021-03-17 06:31] VITALS: BP 109/61
[2021-03-17 06:44] LABS: TROPONIN I < 0.015 ng/mL (0.000-0.045)
[2021-03-17] MEDS: CAPECITABINE 500 MG TABLET PO SCH ×2 (09:54→20:27)
[2021-03-17] MEDS: LEVETIRACETAM 500 MG in SODIUM CHLORIDE 0.9% 100 ML IV SCH ×2 (10:42→22:44)
[2021-03-17 13:09] VITALS: BP 106/70
[2021-03-17] MEDS ORDERED: VALA10007 PO (14:12)
[2021-03-17] MEDS ORDERED: LORA-445 PO (14:16)
[2021-03-17 19:22] VITALS: BP 117/72
[2021-03-17] MEDS: VALACYCLOVIR 500MG TABLET PO SCH (20:35)
[2021-03-17] MEDS ORDERED: GABAPENTIN 300 MG CAPSULE PO SCH (21:00)
[2021-03-18 01:15] VITALS: BP 110/74
[2021-03-18] MEDS: DEXAMETHASONE 4 MG/ML, 1ML IVPush SCH ×3 (03:08→15:00)
[2021-03-18] MEDS: LAPATINIB DITOSYLATE PO SCH (05:39)
[2021-03-18] MEDS: CAPECITABINE 500 MG TABLET PO SCH (09:00)
[2021-03-18] MEDS ORDERED: LORazepam 0.5MG TABLET PO SCH (09:00)
[2021-03-18] MEDS ORDERED: LORazepam 1MG TABLET ONE (09:54)
[2021-03-18 10:00] VITALS: BP 115/74
[2021-03-18] MEDS: VALACYCLOVIR 500MG TABLET PO SCH (10:02)
[2021-03-18] MEDS: LEVETIRACETAM 500 MG in SODIUM CHLORIDE 0.9% 100 ML IV SCH (10:28)
[2021-03-18] MEDS ORDERED: DEXA4TAB66 PO (11:41)
[2021-03-18] MEDS ORDERED: GABA300C PO (11:41)
[2021-03-18] MEDS ORDERED: LEVE500T53 PO (11:41)
[2021-03-18 15:51] VITALS: BP 127/79
== END 2021-03-18 15:55 | disposition home or self-care (01) | DRG 54 ==
LOC: ED 17:47 → EDIP 19:05 → 4NW 22:15
PROVIDERS: ADMIT Internal Medicine; ATTEND Hospitalist
PROC: 009U3ZX Drainage of Spinal Canal, Percutaneous Approach, Diagnostic (ICD-10-PCS; principal; 2021-03-15)
PROC: B01B1ZZ Fluoroscopy of Spinal Cord using Low Osmolar Contrast (ICD-10-PCS; 2021-03-15)
DX: C79.31 Secondary malignant neoplasm of brain (principal); G93.6 Cerebral edema; C79.49 Secondary malignant neoplasm of other parts of nervous system; D75.89 Other specified diseases of blood and blood-forming organs; Z66 Do not resuscitate; E86.0 Dehydration; G51.0 Bell's palsy; G62.0 Drug-induced polyneuropathy; H53.2 Diplopia; I10 Essential (primary) hypertension; T38.0X5A Adverse effect of glucocorticoids and synthetic analogues, initial encounter; T45.1X5A Adverse effect of antineoplastic and immunosuppressive drugs, initial encounter; C50.919 Malignant neoplasm of unspecified site of unspecified female breast; T66.XXXA Radiation sickness, unspecified, initial encounter; Z15.01 Genetic susceptibility to malignant neoplasm of breast; Z79.899 Other long term (current) drug therapy; Z85.3 Personal history of malignant neoplasm of breast; Z85.841 Personal history of malignant neoplasm of brain; Z90.10 Acquired absence of unspecified breast and nipple; Z92.3 Personal history of irradiation; Y92.89 Other specified places as the place of occurrence of the external cause; Z88.8 Allergy status to other drugs, medicaments and biological substances
CPT/HCPCS: 36415; 89051; 99285; J3490; 62328; 72156; 72157; 72158; 80048; 80053; 81001; 82607; 82945; 84157; 84439; 84443; 84484; 85025; 87070; 87086; 87205; 88108; 93005; G0378; J1100; J1953; A9575; J7030